=== PATIENT | female | born 1945 | race Caucasian/White ===

== ENCOUNTER 2016-04-25 08:12 | Inpatient (IN) | payer MEDICARE ==
--- NOTE | 2016-04-21 17:51 | PCM.HPSURG ---
Subjective Date of Service: Apr 03, 2016 Referring Provider: Admitting Physician: Primary Care Physician: Marcos Petersen MD Attending Physician: Kristopher De La Rosa MD Chief Complaint SEE BELOW History of Present Illness Patient: Carmela Mccormick Date of : 1945 Visit Type: Pre Op Visit Date: 04/03/2016 08:30 AM This 70 year old female presents for Pre Op C4-5 ACDF, Allograft and & Plating. History of Present Illness: 1. Pre Op C4-5 ACDF, Allograft, & Plating Carmela Mccormick is a 70 year old female referred by Primary Care Provider (PCP) Dr. Marcos Petersen M.D. who presents today's date 04/03/2016 for a preoperative type of appointment concerning the decision for surgery involving C4-5 anterior cervical discectomy and fusion, with allograft bone, & anterior cervical plating from C4-5 secondary to a diagnosis of cervical spondylosis with myelopathy with related complaints of severe, intractable, and debilitating headaches, neck spasm to the lower back, & pain radiating to the bilateral shoulders, upper & lower extremities with numbness, paresthesias, dysesthesias, cramping, difficulty with ambulation, balance, coordination, fine motor manipulation & unsteadiness of gate. This patient was last evaluated by Dr. Kristopher De La Rosa M.D. on 04/03/2016 documenting that she was last seen in consultation by NAYELY Blankenship 01/05/2016 this patient presented with cervical spondylosis and symptoms of myelopathy. Over the past year she reports local neck pain with flareups of more intense pain and headaches and muscle tightness involving the neck with pain between the shoulder blades. Over the past year she's developed constant diffuse aches described as a heavy feeling in her arms and legs. She also has episodes of paresthesias in her hands that wake her from sleep. She reports occasional shooting pains into the left arm that have been an issue for the past year. She has noticed a loss of coordination in her hands with deterioration of her handwriting over the past 6 months. What is most disturbing for this patient is impairment of balance and frequent falls over the past year. She also reports episodes of cramping in her calves and feet that wake her from sleep over the past 2-3 months she has noted increased low back pain with muscle spasms over the past year. An MRI scan of the cervical spine showed a progression of spondylosis at the C4-5 level with flattening of the anterior cord. She is scheduled for surgery C4-5 ACDF with allograft bone and anterior plating and is being seen today for informed consent. The patient and Dr. De La Rosa discussed all the risks and benefits associated with the procedure as well as reasonable expectations with regards to surgical outcomes & the patient elected to proceed with surgery as planned. The patient suffered a fall with concussion & memory loss on 03/05/2016 she was evaluated at [facility] emergency department and stayed overnight for observation with negative CT scan of the brain and no significant change in her myelopathic presentation and/or movement disorder. She was also recently evaluated by Neurologist Dr. Valentin Pat M.D. 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 She underwent a [facility] DatScan SPECT/CT with radiological reading impression listing no scintigraphic evidence of nigrostriatal denervation in a manner suggestive of Parkinson's Disease or related disorders. The patient is scheduled to follow-up with Dr. Pat for medical clearance before her scheduled cervical spinal surgery. The patient denies any complete or acute loss of control of bowel or bladder function, saddle paresthesia or anesthesia. The patient has a pertinent positive past medical, surgical and social history for bilateral KAM, hysterectomy, recent vision changes, increased bladder spasticity and/or stress incontinence, & frequent headaches. The patient admits to 2 glasses of wine per night & her is an alcoholic who will be unable to support her postoperatively therefore she will rely on her daughter & son-in-law. The patient's related complaints have been a serious detriment to their happiness and activities of daily living. Having failed conservative treatment the patient presents today for their decision for surgery appointment involving C4-5 anterior cervical discectomy and fusion, with allograft bone, & anterior cervical plating from C4-5 for treatment of cervical spondylosis with myelopathy ; related to severe, intractable, and debilitating headaches, neck spasm to the lower back, & pain radiating to the bilateral shoulders, upper & lower extremities with numbness, paresthesias, dysesthesias, cramping, difficulty with ambulation, balance, coordination, fine motor manipulation & unsteadiness of gate. The procedure is scheduled to be performed by Dr. Kristopher De La Rosa M.D. on 04/25/2016. PHYSICAL EXAM: This is a well-developed, well nourished, female who is alert, cooperative, and appears to be in no acute distress with language and speech that is intact and fluent. There is no evidence of recent or remote memory impairment. The patient's knowledge is appropriate for age and level of education with a pleasant affect & euthymic mood. The patient ambulates with significant difficulty using a wide based shuffling gait and a cane for assistance. Exam of the head is normocephalic. PERRL, EOMI, without facial droop, hearing grossly intact, nostrils patent, oral cavity and pharynx normal. Exam of the neck supple, without lymphadenopathy or thyromegaly. Exam or the heart reveals regular rate and rhythm without audible murmurs The lungs are clear to auscultation bilaterally The abdomen is non- tender and non-distended Exam of the cervical spine reveals that the skin is grossly intact and without gross deformity, or asymmetry of spinal muscles, full range of motion causing mild pain with positive inferior bilateral paraspinal tenderness to palpation. Negative Spurling, positive L'hermitte's and negative distraction. Tone: increased in the upper and lower extremities. Exam of the right upper extremity reveals that the skin is grossly intact with no significant deformity or joint abnormality. Strength in the deltoids, biceps , triceps, wrist extensors, wrist flexors, and intrinsic is rated 5/5. There is normal gross sensation to pinprick & light touch. Radial pulse is intact. Tinel's & Phalen's are negative with no tenderness over cubital tunnel. DTRs: Biceps 2+, triceps 2 +, brachioradialis 2 +. Exam of the left upper extremity reveals that the skin is grossly intact with no significant deformity or joint abnormality. Strength in the deltoids, biceps , triceps, wrist extensors, wrist flexors, and intrinsic is rated 5/5. There is normal gross sensation to pinprick & light touch. Radial pulse is intact. Tinel's & Phalen's are negative with no tenderness over cubital tunnel. DTRs: Biceps 1 +, triceps 2 +, brachioradialis 2 +. Exam of the thoracic and lumbar spine reveals the skin is grossly intact without gross deformity, or asymmetry of spinal muscles, normal range of motion causing minimal pain with mild bilateral inferior lumbar paraspinal tenderness to palpation without muscular fasciculations appreciated. Exam of the right lower extremity reveals KAM scar healed with no significant deformity or joint abnormality. Strength in the hip flexors, quadriceps, gastrocnemius, tibialis anterior, and extensor hallucis longus is rated 5/5. There is normal gross sensation to pinprick & light touch. There is no edema. Peripheral pulses are intact. No obvious varicosities. Negative straight leg raise and negative Fabers/Patricks. DTRs: Patellar 3 +, & achillies 3 +. Exam of the left lower extremity reveals AKM scar healed with no significant deformity or joint abnormality. Strength in the hip flexors, quadriceps, gastrocnemius, tibialis anterior, and extensor hallucis longus is rated 5/5. There is normal gross sensation to pinprick & light touch. There is no edema. Peripheral pulses are intact. No obvious varicosities. Negative straight leg raise and negative Fabers/Patricks. DTRs: Patellar 3 +, & achillies 3 +. CNII-XII, rjebln-ae-[id number], xnir-[id number] & rapid alternating movements in the upper & lower extremities is grossly intact. There is negative Romberg's, & bilateral renea's, with positive clonus 2 beats & normal bilateral babinski' s. Medical/Surgical/Interim History Reviewed, no change. Last detailed document date:04/03/2016. Family History: Reviewed, no changes. Last detailed document date:04/03/2016. Social History (Reviewed, updated) 04/03/2016 Tobacco use reviewed. Preferred language is Fijian. The patient does not need an vp research. Smoking status: Former smoker. Smoking Status Use Status Type Smoking Status Years Used Total Pack Years yes Cigarette Former smoker 30.00 7.50 Cessation Type Date Quit Longest Tobacco Free Cessation Method Cigarette 04/23/1985 CAFFEINE The patient uses caffeine: coffee and tea. - 2 cups a day. Allergies: Ingredient Reaction Medication Name Comment NO KNOWN ALLERGIES Reviewed, no changes. Review of Systems System Neg/Pos Details MS Positive Back pain, Myalgia, Neck stiffness. Neuro Negative Dizziness, headache and seizures. Constitutional Negative Chills and fever. ENMT Negative Hearing loss. Integumentary Negative Mrsa and rash. Psych Negative Anxiety and depression. Negative Dysuria, urge incontinence and urinary incontinence. MS Negative Bone/joint symptoms and muscle weakness. Eyes Negative Double vision and vision loss. GI Negative Abdominal pain, constipation, diarrhea, nausea and vomiting. Endocrine Negative Weight gain and weight loss. Cardio Negative Chest pain, irregular heartbeat/palpitations, leg swelling and pacemaker. Corby/Lymph Negative Blood clots. Respiratory Negative Dyspnea, apnea and wheezing. Vital Signs Height Time ft in cm Last Measured Height Position % 8:16 AM 5.0 2.00 157.48 01/05/2016 Weight/BSA/BMI Time lb oz kg Context % BMI kg/m2 BSA m2 8:16 AM 143.80 65.227 26.30 1.69 Blood Pressure Time BP mm/Hg Position Side Site Method Cuff Size 8:16 AM 147/93 sitting left wrist automatic adult Temperature/Pulse/Respiration Time Temp F Temp C Temp Site Pulse/min Pattern Resp/ min 8:16 AM 97.9 36.6 65 regular Pain Scale Time Pain Score Method 8:16 AM 6/10 Numeric Pain Intensity Scale Measured By Time Measured by 8:16 AM Anastacio Rosenberg MA Screening Summary:o Pain is described as 6/10. Evaluated pain score with Numeric Pain Intensity Scale. The following were reviewed: tobacco use, alcohol use and caffeine use Physical Exam Exam Findings Details Comments SEE ABOVE Assessment/Plan # Detail Type Description 1. Assessment Cervical spondylosis with myelopathy (M47.12). 2. Assessment Preoperative examination (Z01.818). Patient Plan We including your Attending Surgeon have discussed the risks and benefits associated your scheduled procedure which you have verbally acknowledged understanding including but not limited to the possibility of an outcome that we are unable to predict or was not mentioned. 1. You are scheduled for a C4-5 anterior cervical discectomy and fusion, with allograft bone, & anterior cervical plating from C4-[address] Kristopher De La Rosa M.D. at [facility] on 04/25/2016. 2. Check in time is 8:30 AM. Also please ignore instructions below if told otherwise by your preadmission nurse or if you do not take the medications listed below. 3. Nothing to eat after midnight the night before surgery. You may take all of your "approved" medications with small sips of water. Remember to take your a.m. hypertension medication if it is a beta lázaro and ends in "olol. Otherwise ask your doctor if you need to hold your a.m. hypertension medication. 4. No aspirin, ibuprofen, Naprosyn, or other NSAIDs starting 7 days prior to surgery. 5. Please stop Warfarin/Coumadin or other blood thinners such as Plavix, Aggrenox, or Xarelto 7 days prior to your surgical procedure and follow specific instructions from your prescribing provider. 6. Please stop Lovenox bridging in the morning one day prior to procedure. 7. Please stop Suboxone/Buprenorphine at least 4 days prior to procedure. 8. Go to the hospital today to get her preoperative testing done. Take the order form to the surgery desk on the second floor of the [facility] (main entrance next to the emergency entrance). I will notify you if there is any test results that require further workup prior to surgery. 9. Follow the instructions you were given today, use the cleansing cloths the night before as well as the morning of her surgery. 10. If you are prescribed inhalers, CPAP or BiPAP machines you use at home bring along with you to the hospital. 11. ONLY If you take medications for Diabetes: If you have an insulin pump continue lowest (typically night-time) basal rate into the a.m. If you do not have a pump check h your a.m. blood sugar and hold insulin if BS less than 100. If you are taking long-acting, intermediate acting (NPH) or 70/30 preparation : Take half on day of procedure. If you are taking ultra long-acting insulin such as glargine, Lantus either at night or in the a.m. continue as scheduled ( including day of surgery). If you take short acting regular insulin (insulin not delivered via pump) discontinue on day of procedure. 12. Please call if you have any questions before your surgery: [phone]. Today's instructions/counseling include(s) Pre-operative instructions given to the patient and or legal food service sales representatives(s) orally and in writing. 13. Our office will contact you if there are any test results that require further workup prior to surgery. Provider Plan The patient's history and examination as well as radiological findings were reviewed with Dr. Kristopher De La Rosa M.D. and conveyed the patient in detail. The findings are consistent with cervical spondylosis with myelopathy and are most likely the cause of the patient's severe, intractable, and debilitating headaches, neck spasm to the lower back, & pain radiating to the bilateral shoulders, upper & lower extremities with numbness, paresthesias, dysesthesias, cramping, difficulty with ambulation, balance, coordination, fine motor manipulation & unsteadiness of gate. The patient has failed extensive conservative treatment for this condition. The treatment options were discussed with the patient. The options include attempt to live with the condition, reattempt conservative treatment, try a pain management intervention / injection or consider a surgical intervention. We are not extremely optimistic that further conservative treatment, pain management intervention and/or injection will adequately resolve the patient's symptoms of severe, intractable, and debilitating headaches, neck spasm to the lower back, & pain radiating to the bilateral shoulders, upper & lower extremities with numbness, paresthesias, dysesthesias, cramping, difficulty with ambulation, balance, coordination, fine motor manipulation & unsteadiness of gate. Therefore we recommend C4-5 anterior cervical discectomy and fusion, with allograft bone, & anterior cervical plating from C4-5. The patient was provided/offered educational materials pertaining to their diagnosis and the above discussed procedure. We discussed the risks and benefits associated with this surgery. A spine model was used to explain the nature of this type of surgery. The risk of the required anesthesia was also mentioned including but not limited to organ failure such as heart attack, pneumonia and stroke even . The risk of this type of surgery was also mentioned. Including but not limited to an unsuccessful outcome, residual symptoms, odynophagia, dysphasia or sore throat, referred or radiating posterior spinal myofascial inflammatory pain or spasm, post operative instability, instrumentation failure, sensory changes, blood loss, blood clots, wound infection, spinal cord or nerve damage, CSF or lymph leak, damage to neighboring structures such as the recurrent laryngeal nerve, perforation of the esophagus or trachea, pseudoarthrosis, adjacent level disease, La Nena's Syndrome, vision loss, voice change, resulting in temporary or permanent dysfunction, even disability, paralysis, and . The recovery of this type of surgery was also mentioned. The chances of improvement of local neck pain is 50%. This includes but is not limited to reasonable expectations for the treatment of myelopathy involving the surgical decompression of the cervical spinal cord; which will stop the progression of the patient's condition but cannot guarantee improvements in any associated physical complaints. The patient verbalized understanding all the risks and benefits, knowing that it is impossible to predict or guarantee every surgical outcome; and would like to proceed with the above discussed procedure anyways. Surgery is scheduled for 04/25/2016 The standard [facility] preoperative screening tests, medicine restrictions, and logistical protocols apply. Any preoperative testing is within normal limits to undergo the above discussed procedure unless otherwise noted in the medical record. Medications (added, continued or stopped this visit): Start Date Medication Directions Stop Date 03/06/2016 carbidopa 25 mg-levodopa 100 mg tablet take 1 tablet by oral route 3 times every day Multi-Shy 50 and Over tablet 04/22/2016 [place] 10 mg-325 mg tablet take 0.5-2 tablet(s) by oral route every 4 - 6 hours as needed for pain 04/22/2016 Valium 5 mg tablet take 1 - 2 Tablet by oral route every 8 hours as needed for spasm vitamin B complex tablet Vitamin C With Nilsa Hips 1,000 mg tablet Counseling/Educational Factors: Counseling / educational factors reviewed. Counseling / educational factors reviewed. This is a visit of 60 minutes. 50 minutes were spent counseling. The patient was checked out at 11:40 AM. This document may have been created using voice recognition software or other electronic means and may contain inadvertent hospital chaplain errors. Provider: Abelino OVERTON 04/03/2016 12:06 PM Document generated by: Abelino Lawrence 04/03/2016 12:06 PM CC Providers: Marcos Petersen [address] [place] [address]- Marcos Clarke[address] [place] [address] [address] [place] [address] w bud rae i n i c s . 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 PAT/SRC NEURO) Denies:: Dementia (02/2016 ED VISIT @ [facility] FOR FALL & CONCUSSION/MEMORY LOSS( MRI NEG)) Gastrointestinal History HX of GI Problems?: No Genitourinary History Hx of Gu Problems?: Yes Female/Male History Reproductive History Female: Denies: Currently ? Skin History Skin History: Denies:: History Skin Disorders? Pressure Ulcers Musculoskeletal History Hx Musculoskeletal Problems?: Yes Musculoskeletal History: Positive for:: Degenerative Joint Joint Replacement (S/P BILAT KAM'S) Osteoarthritis Denies:: Back Injury (C/OF NECK PAIN) Psycho Social History Hx of Psycho/Social Problems?: No Other History Hx Any Other Health Problems?: Yes Other History: Positive for:: Hospitalization (FALL/CONCUSSION 02/2016) Denies:: Cancer Endocrine Disease Thyroid Disease Diabetes: No Social History Hx Alcohol Use: YesAlcoholic Drinks Per Day: 2/DAY Abelino Lawrence PA-C Apr 21, 2016 17:51
[2016-04-25] VITALS (14 sets, daily range): BP systolic 148–187; BP diastolic 72–96; PULSE 52–93; RESP 13–21; O2SAT 92–97
[~2016-04-25] VITALS: Ht 157.5 cm; Wt 65.2 kg
[~2016-04-25 08:12] MED LIST: ASCO100089 PO; Bacitracin 50,000 unit Inj IRRIGATION ONE; CARB1TAB14 PO; CEFAZOLIN IV ONE; CHOL100045 PO; DEXTROSE IV ONE; DIAZ5TAB PO; HYDR-3740 PO; Lactated Ringer's 1,000 ML IV ONE; MULTIVIT PO; Thrombin Powder 5,000 Unit TOPICAL ONE; VIT1TABL83 PO; [UNRECOGNIZED DRUG - OTHER] IV ONE; [UNRECOGNIZED DRUG - OTHER] PO
--- NOTE | 2016-04-25 10:31 | PCM.HPANE ---
Patient Data Surgeon Admitting Provider: Attending Provider:Kristopher De La Rosa MD Primary Care Physician:Marcos Petersen MD Other Provider:Suraj Hartman Anesthesia Reason for Visit Cervical Spondylosis With Myelopathy Ht/WT & BMI Height (Feet): 5 Height (Inches): 2.00 Weight (Kilograms): 65.2 Body Mass Index 26.00 Allergies Coded Allergies: No Known Allergies (Unverified , 04/19/16) Past Anesthesia History Anesthesia History: Denies:: Anesthesia Reactions, Malignant Hyperthermia Diabetes History Hx Diabetes?: No MRSA MRSA: No Medications Hypertension Medication: No Home Meds Incl Beta Hannah: No Reported Medications Cholecalciferol (Vitamin D3) (Vitamin D)1,000 Unit Capsule2,000 Unit PO DAILY # 1 BOTTLE Ref 0 04/19/16 Ascorbic Acid (Vitamin C)1,000 Mg Tab.chew1,000 Mg PO DAILY Ref 0 04/19/16 Vit B Comp/C/FA/Iron/Vit E (Vitamin B Complex Tablet)1 Each Tablet1 Each PO DAILY 04/19/16 Diazepam (Valium)5 Mg Tablet5-10 Mg PO TID PRN PRN 30 Days Ref 0 04/19/16 Hydrocodone-Acetaminophen 10-325 mg 1 Each Tablet0.5-2 Tablet PO Q4-6H PRN For Pain Ref 0 04/19/16 [multivit 50 & older] No Conflict Check1 Tab PO DAILY 04/19/16 Carbidopa/Levodopa 25-100 mg 1 Each Tablet1 Tablet PO TID takes 1 tab @ 0800, 1.5 tabs @ 1500, 1 tab @ 2200 04/19/16 History History of ENT Problems?: No Hx of Heart Problems?: No Cardiovascular History: Denies:: Heart Murmur Valvular Heart Disease Hx of Respiratory Problem?: No Respiratory History: Denies:: Use of C-PAP Machine Hx Neurologic Problems?: Yes Neurological History: Positive for:: 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 PAT/SRC NEURO) Denies:: Dementia (02/2016 ED VISIT @ [facility] FOR FALL & CONCUSSION/MEMORY LOSS( MRI NEG)) Hx of GI Problems?: No Hx of Problems?: Yes Female Hx: Denies:: Currently Skin History: Denies:: History Skin Disorders? 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) Osteoarthritis Denies:: Back Injury (C/OF NECK PAIN) Hx of Psycho/Social Problems?: No Hx Surgeries?: Yes (BILAT KAM'S,HYST) Hx Any Other Health Problems?: Yes Other History: Positive for:: Hospitalization (FALL/CONCUSSION 02/2016) Denies:: Cancer Endocrine Disease Thyroid Disease History Blood Transfusions: Denies:: Blood Transfusions Hx Diabetes: No Hx Alcohol Use: YesAlcoholic Drinks Per Day: 2/DAYHave You Smoked inLast 12 mo : NoApprox How Many Cigarettes/day: 30YR HX Stop/Bang S-Snoring: Do You Snore Loudly: No T-Tired: feel tired, fatigued: Yes O-Obsered: Observed not breath: No P-Blood Pressure: treated: No B- Body Mass Index > 35 kg/m2: No A- Age over 50: Yes N- Neck Large Circumference: No G- Gender Male: No ANNY Total Score: 2 ANNY Risk Assessment: Low Risk, <3 Yes Risk Assessment Category Category 1A: Patient has history of documented sleep apnea, and HAS NOT received any narcotic, sedative or anesthesia administration during this stay. Category 1B: Patient has history of documented sleep apnea, and HAS received any narcotic , sedative or anesthesia administration during this stay Category 2: Patient has SUSPECTED Obstructive Sleep Apnea, and HAS received any narcotic , sedative or anesthesia administration during this stay. Category 3: Patient has SUSPECTED Obstructive Sleep Apnea and HAS NOT received narcotic, sedative or anesthesia administration during this stay. Category 4: Outpatient in Procedural Areas with known sleep apnea or who screen positive for High Risk via the STOP/BANG questionnaire. Exam Exam Vital Signs Vital Signs Date Time Temp Pulse Resp B/P Pulse Ox O2 Delivery O2 Flow Rate FiO2 04/25/16 08:51 36.5 65 16 157/85 96 Room Air General Appearance: Alert, Oriented X3, Cooperative, No Acute Distress HEENT/AIRWAY: MP 2 Lungs: Clear to Auscultation, Normal Air Movement Heart: Exam Unremarkable, Regular Rate/Rhythm, No Murmurs/Rubs/Gallops Meds/Labs/Diagnostics Admission Meds Current Medications Lactated Ringer's (Lr) 1,000 ml @ 120 mls/hr Q8H20M ONCE IV Last administered on 04/25/16t 08:17; Start 04/25/16 at 05:00; Stop 04/25/16 at 13:19 Plan Impression Patient chart reviewed, patient interviewed and anesthestic plan with risks, benefits, and alternatives discussed, and informed consent obtained. NPO Status: 04/24 at 1999 ASA Physical Status: ASA3 Severe Disease Anesthetic Plan: GA Bene/Risks/Altern/Consents: Yes HP Complete Prior to Induction: Yes Efrain Johnston MD Apr 25, 2016 09:05
[2016-04-25] MEDS ORDERED: Lactated Ringer's 500 ML IV PRN (10:32)
[2016-04-25] MEDS ORDERED: Lactated Ringer's 1,000 ML IV SCH (10:32)
[2016-04-25] MEDS ORDERED: Phenylephrine 10,000 mCg/mL Inj IVPUSH PRN (10:35)
[2016-04-25] MEDS ORDERED: MetoCLOpramide 5 mg/mL 2 mL Inj IVPUSH PRN ×2 (10:35→13:35)
[2016-04-25] MEDS ORDERED: HYDROmorphone 1 mg/mL Inj IVPUSH PRN ×2 (10:35→13:35)
[2016-04-25] MEDS ORDERED: Labetalol 5 mg/mL 4 mL Inj IV PRN (10:35)
[2016-04-25] MEDS ORDERED: EPHEDrine Sulfate 50 mg/mL Inj IVPUSH PRN (10:35)
[2016-04-25] MEDS ORDERED: Ondansetron 2 mg/mL 2 mL Inj IVPUSH PRN ×3 (10:35→13:35)
[2016-04-25] MEDS ORDERED: Atropine 0.4 mg/mL Inj IVPUSH PRN (10:35)
[2016-04-25] MEDS ORDERED: hydrALAZINE 20 mg/mL Inj IVPUSH PRN (10:35)
[2016-04-25] MEDS ORDERED: fentaNYL-PF 50 mCg/mL 2 mL Inj IVPUSH PRN (10:35)
[2016-04-25] MEDS ORDERED: Bupivacaine-MPF 0.5% 30 mL Inj INFILTRATE ONE (10:38)
--- NOTE | 2016-04-25 11:32 | DRSVH ---
PROCEDURE: X-RAY CERVICAL SPINE, 1 VIEW INDICATIONS: CERVICAL SPONDYLOSIS WITH MYELOPATHY TECHNIQUE: Single lateral view of the cervical spine acquired. COMPARISON: None. FINDINGS: Bones: No fractures or dislocations to the C7 level. No suspicious bony lesions. Localizer devices are present anteriorly at C3-C4 and C4-C5. Mild grade 1 anterolisthesis at C4-C5. Mild grade 1 retro listhesis of C5 on C6. Soft tissues: No prevertebral soft tissue swelling. IMPRESSION: C-spine localization as above. Dictated by: Juancarlos Medley M.D. on 04/25/2016 at 11:30 Approved by: Juancarlos Medley M.D. on 04/25/2016 at 11:30
--- NOTE | 2016-04-25 13:16 | PCM.ANEP1 ---
Post Anesthesia Phase 1 PACU Phase 1 Assessment Date of Service: Apr 03, 2016 Vital Signs Vital Signs Date Time Temp Pulse Resp B/P Pulse Ox O2 Delivery O2 Flow Rate FiO2 04/25/16 08:51 36.5 65 16 157/85 96 Room Air Level of Alertness: Awake, talking BYRD's with Equal Strength: Yes Pain: No Nausea or Vomiting: No Oxygen Delivery: Simple Mask Lungs: Clear to Auscultation, Normal Air Movement Summary Hypertensive in PACU without pain, titrate labetalol. Efrain Johnston MD Apr 25, 2016 13:16
--- NOTE | 2016-04-25 13:18 | PCM.ANEP2 ---
Post Anesthesia Evaluation ASA/CMS Post Anesthesia VS in Patient's Normal Range?: Yes Resp Stable; Airway Patent?: Yes CV Function & Hydration Stable: Yes Mental Status Recovered?: Yes Pain control Satisfactory?: Yes N/V Control Satisfactory?: Yes Efrain Johnston MD Apr 25, 2016 13:18
[2016-04-25] MEDS ORDERED: HYDROcodone-APAP 10-325 mg PO PRN (13:25)
[2016-04-25] MEDS ORDERED: hydrOXYzine Pamoate 25 mg Capsule PO PRN (13:35)
[2016-04-25] MEDS ORDERED: Dexamethasone 4 mg/mL Inj IVPUSH SCH (13:35)
[2016-04-25] MEDS ORDERED: Sodium Biphos-Phos 133 mL Enema RECTAL PRN (13:35)
[2016-04-25] MEDS ORDERED: Polyethylene Glycol (PEG) 17 Gm Powder PO PRN (13:35)
[2016-04-25] MEDS ORDERED: Benzocaine (Hurricaine) 20% Unit-Dose Spray MUC_MEMBRM PRN (13:35)
[2016-04-25] MEDS ORDERED: Senna-Docusate 8.6-50 mg Tablet PO PRN (13:35)
[2016-04-25] MEDS ORDERED: Benzocaine-Menthol Lozenge 2/Pkg PO PRN (13:35)
[2016-04-25] MEDS ORDERED: Magnesium Hydroxide 10 mL Oral Concentration PO PRN (13:35)
--- NOTE | 2016-04-25 13:40 | DRSVH ---
PROCEDURE: X-RAY CERVICAL SPINE, 1 VIEW INDICATIONS: INTRAOPERATIVE IMAGE TECHNIQUE: Single lateral view of the cervical spine acquired. COMPARISON: [facility], CR, XR CERVICAL SPINE 1VW, 04/25/2016, 11:05. FINDINGS: Bones: No fractures or dislocations to the C7 level. Anterior fusion of C4-C5 has been performed. N o suspicious bony lesions. Soft tissues: No prevertebral soft tissue swelling. IMPRESSION: C4-C5 fusion. Dictated by: Juancarlos Medley M.D. on 04/25/2016 at 13:38 Approved by: Juancarlos Medley M.D. on 04/25/2016 at 13:38
[2016-04-25] MEDS ORDERED: fentaNYL-PF 50 mCg/mL 2 mL Inj IVPUSH ONE (14:04)
[2016-04-25] MEDS ORDERED: Rocuronium 10 mg/mL 5 mL Inj ONE (14:43)
[2016-04-25] MEDS ORDERED: Dexamethasone 4 mg/mL Inj ONE (14:43)
[2016-04-25] MEDS ORDERED: fentaNYL-PF 50 mCg/mL 2 mL Inj ONE (14:43)
[2016-04-25] MEDS ORDERED: Propofol 10,000 mCg/mL 20 mL Inj ONE (14:43)
[2016-04-25] MEDS ORDERED: Glycopyrrolate 0.2 mg/mL 5 mL Inj ONE (14:43)
[2016-04-25] MEDS ORDERED: Neostigmine 1 mg/mL 5 mL Inj ONE (14:43)
[2016-04-25] MEDS ORDERED: Remifentanil 1 mg/3 mL Inj ONE (14:43)
[2016-04-25] MEDS ORDERED: Ondansetron 2 mg/mL 2 mL Inj ONE (14:43)
[2016-04-25] MEDS ORDERED: Ketamine 10 mg/mL 20 mL Inj ONE (14:43)
[2016-04-25] MEDS: Lactated Ringer's 1,000 ML IV SCH (15:06)
--- NOTE | 2016-04-25 16:01 | NUR ---
Postop: Pt to floor at approx 1500. Pt alert, but sedate. Iv patent and running. Scd's on. Soft neck collar in place with Valeriy anterior with serosanguinous drainage. Started on Ice chips. Vital signs wnl. Care transferred to Rosa Leone at 1600.
[2016-04-25] MEDS: HYDROcodone-APAP 10-325 mg PO PRN ×2 (18:40→22:58)
[2016-04-25] MEDS: CeFAZolin Inj 2 GM in IV Premix 1 EACH IV SCH (20:28)
[2016-04-25] MEDS: Senna-Docusate 8.6-50 mg Tablet PO SCH (20:38)
--- NOTE | 2016-04-25 20:59 | OP ---
[address] [address] OPERATIVE REPORT PATIENT: MIRANDA LOGAN : 1945 MR#: [id number] ADMIT: 04/25/2016 JOB ID: [id number] DATE OF SURGERY: 04/25/2016 PREOPERATIVE DIAGNOSIS(ES): Cervical spondylosis and myelopathy. POSTOPERATIVE DIAGNOSIS(ES): Cervical spondylosis and myelopathy. PROCEDURE: C4-5 anterior cervical diskectomy and fusion with allograft bone and C4-5 anterior plating. SURGEON: Kristopher De La Rosa MD GAS LEAK TESTER: Papo Blankenship ANESTHESIA: General with Dr. Efrain Johnston. ESTIMATED BLOOD LOSS: 50 cc. DRAINS: One DM. COMPLICATIONS: None. INDICATIONS: This patient presented with symptoms of cervical myelopathy. An MRI scan of the cervical spine showed severe spondylosis with cord compression at the C4-5 level, with a moderate degree of bilateral neural foraminal narrowing. DESCRIPTION OF PROCEDURE: This patient was taken to the operating room on April 25, 2016 and placed under general anesthesia, placed supine with her head supported on a donut on the operating table. She was prepped and draped sterile. The right side of the neck was infiltrated with 0.5% plain Marcaine. An incision was made sharply from the midline to the sternocleidomastoid at the level of C5. The incision was carried down through the skin and subcutaneous tissues and hemostasis was achieved with the bipolar electrocautery. A Weitlaner retractor was placed. Blunt dissection was then used to create a plane just medial to the sternocleidomastoid. The carotid was palpated and mobilized laterally. The esophagus and trachea were mobilized medially with an appendectomy retractor. Then, spinal needles were then placed in the disk space at C3-4 and C4-5. Location of these markers was confirmed with an intraoperative lateral C-spine x-ray that was read by the radiologist. The bent spinal needles were removed and the monopolar was used to charity the C4-5 level. Deep retractors were placed with the blades beneath the longus coli musculature at the C4-5 level and distracted open. The Lindsay pins were replaced at C4-5 and distracted open. The microscope was then brought into position, sighting down the C4-5 disk level. The annulus was incised with the monopolar. Then, the disk material at C4-5 was removed piecemeal with curette and pituitary rongeur. The high-speed bur was used to take down the anterior and posterior osteophytes at C4-5 and to widen the disk space. The posterior longitudinal ligament was resected at C4-5. The patient had bilateral foraminotomies to decompress the C5 roots bilaterally. Following this decompression, the disk space was prepared for the fusion using the rasp set, rasping to 8 mm. The disk space was then irrigated with antibiotic solution and allograft bone was selected to fit the C4-5 level. Vertigraph donor bone was selected, measuring 8 mm and tapering to 6 mm. The disk space was irrigated with antibiotic solution and then the allograft bone was placed at the C4-5 level and distraction was released. The bone graft was held firmly in position. A plate was then selected to span the C4-5 level. This is a Aguilar plate, a product of [employer]. The plate is a dynamic titanium plate measuring 16 mm. The plate was secured to the vertebral body of C4 and C5 with four fixed angle 12 mm self-drilling screws. An intraoperative lateral C-spine film was obtained confirming good placement of the bone graft and plating hardware at C4-5. The screws were all locked into position and the spacing bar was removed from the Aguilar plate. The wound was then irrigated with antibiotic solution and hemostasis was achieved with the bipolar electrocautery. A DM drain was placed at the base of the wound and brought out through a separate stab wound, and hooked up to bulb suction. The platysma was approximated with interrupted sutures of 3-0 Vicryl and the skin was closed with 4-0 Vicryl using a subcuticular stitch. Steri-Strips were applied to the skin which was dressed with Telfa, gauze, and tape.
[2016-04-26] MEDS: Dexamethasone 4 mg/mL Inj IVPUSH SCH ×3 (00:13→12:00)
[2016-04-26 00:41] VITALS: BP 133/70; PULSE 63; RESP 18; O2SAT 94
--- NOTE | 2016-04-26 02:06 | NUR ---
Pain Patient states pain at 4/10. [place] given 1 tab, Patient's pain came down to a 1. Patient up to bathroom with FWW, stand by assist.
[2016-04-26] MEDS: Lactated Ringer's 1,000 ML IV SCH ×2 (02:11→11:48)
[2016-04-26] MEDS: CeFAZolin Inj 2 GM in IV Premix 1 EACH IV SCH (03:28)
[2016-04-26] MEDS: HYDROcodone-APAP 10-325 mg PO PRN ×3 (05:14→13:05)
[2016-04-26 05:56] VITALS: BP 133/73; PULSE 70; RESP 17; O2SAT 95
[2016-04-26] MEDS: Senna-Docusate 8.6-50 mg Tablet PO SCH (08:14)
[2016-04-26] MEDS ORDERED: MULTIVIT PO SCH (08:30)
[2016-04-26] MEDS ORDERED: Ascorbic Acid 500 mg Tablet PO SCH (08:30)
[2016-04-26] MEDS ORDERED: [UNRECOGNIZED DRUG - OTHER] PO SCH (08:30)
[2016-04-26 08:55] VITALS: BP 153/77; PULSE 65; RESP 17; O2SAT 94
--- NOTE | 2016-04-26 09:19 | PCM.DISURG ---
Surgical Discharge Instruction Date of Service Apr 26, 2016 Dates of Hospitalization Date of Hospital Admission Apr 25, 2016 at 14:42 Providers Admitting Physician: Kristopher De La Rosa MD Primary Care Physician: Marcos Petersen MD Attending Physician: Kristopher De La Rosa MD Discharge Diagnosis Discharge Diagnosis Status post C4-5 anterior cervical discectomy and fusion with allograft bone, & anterior cervical plating from C4-5 Post Operative diagnosis Status post C4-5 anterior cervical discectomy and fusion with allograft bone, & anterior cervical plating from C4-5 Additional Instructions Discharge Instructions Anterior Cervical Discectomy and Fusion What is my recovery like? The hospital stay is usually overnight. After the surgery, you might have a sore throat. This is very common due to the retraction (moving) of the esophagus and trachea. The sore throat usually resolves in 1-2 weeks. Drinking lots of fluids will help improve the symptoms. The cervical collar should be worn at night and for comfort only during the day. On your postoperative follow- up appointments, your Doctor will perform X-rays to see how well everything is healing. What are my restrictions? You should not lift anything heavier than five pounds. Avoid excessive movements of your neck until instructed specifically by your Doctor. Can I Shower? You may shower when you go home. You must remove the outside dressing on the 7th day after surgery, or change dressing as needed if soiled or saturated ( replacing new sterile gauze & water proof dressing) otherwise leave alone. The small pieces of tape (steri-strips) directly on top of the incision may get wet. The steri-strips will fall off on their own. Can I drive? No, you should not drive until specifically given permission from your Doctor in a follow up appointment. Most Patient's can drive in 2-3 weeks if they are not taking narcotic pain medications or muscle relaxers. You may ride in a car, but should avoid trips longer than two hours in duration. When can I return work / sports? Your Doctor will discuss your return to work with you on your first postoperative follow-up appointment. Most patients may return to work within 2 weeks for sedentary jobs. More physically demanding jobs may require 3-6 months of healing before such work can be considered. When should I call the doctor? You should call your Doctor or go to the Emergency Department if you develop chest pain, shortness of breath, a temperature greater than 101.5 F, severe uncontrolled pain or weakness, loss of bowel or bladder function, choking, swelling, lots or drainage, pus discharge or constipation. Instructions Regarding Comfort & Pain Medication Use: During the recovery period , even with the use of pain medication, you may experience pain at the site of surgery. You may also have the same type of pain you had before surgery. Please use your pain scale as a guide for taking your pain medication. When your pain is greater than 4 out of 10, or when your pain reaches your personal tolerable level of pain, take your pain medication as prescribed. Use your pain medication on an 'as needed' basis. This means if your pain level is within your tolerable level of pain you DO NOT need to take the medication. As you get better, you will notice you can increase the time interval between doses and decrease the number of tablets you are taking, gradually taking less and less pain medication. Taking pain medication when it is not necessary (for example when your pain is tolerable or acceptable) can result in dangerous side effects and over- sedation. Signs and symptoms of over-sedation include: drowsiness, excessive sleeping, slow or difficult breathing, slurred speech, impaired thinking, confusion, impaired motor coordination. If you have any of these symptoms stop taking the medication and immediately contact your doctor. IF SYMPTOMS ARE LIFE THREATENING CALL 911. To decrease pain and swelling, frequently apply an ice pack for 20 min intervals with at least one hour off. When to take Acetaminophen for pain? If you don't have liver problems, allergies and/or Tylenol is not in your current pain medication. Take Extra Strength Tylenol 500mg 2 tabs by mouth every 6 hours as needed for pain. DO NOT EXCEED 8 TABS PER DAY. Follow Up Plan Follow Up Plan Please follow-up with physician case assistant and outpatient neurosurgery clinic in 1 week for wound check. Follow-up Provider (F9): Abelino Lawrence PA-C Additional Information Attending Statement All documentation reviewed & orders authorized by Dr. Kristopher De La Rosa M.D. Abelino Lawrence PA-C Apr 26, 2016 09:19
--- NOTE | 2016-04-26 09:32 | PCM.DC.SUR ---
Discharge Summary Date of Service: Apr 26, 2016 Date of Hospital Admission: Apr 25, 2016 at 14:42 Date of Operation(s): 04/25/2016 Date of Discharge: 04/26/2016 Operation C4-5 anterior cervical discectomy and fusion with allograft bone, & anterior cervical plating from C4-5 Brief History and Physical: Patient: Carmela Mccormick Date of : 1945 Visit Type: Pre Op Visit Date: 04/03/2016 08:30 AM This 70 year old female presents for Pre Op C4-5 ACDF, Allograft and & Plating. History of Present Illness: 1. Pre Op C4-5 ACDF, Allograft, & Plating Carmela Mccormick is a 70 year old female referred by Primary Care Provider (PCP) Dr. Marcos Petersen M.D. who presents today's date 04/03/2016 for a preoperative type of appointment concerning the decision for surgery involving C4-5 anterior cervical discectomy and fusion, with allograft bone, & anterior cervical plating from C4-5 secondary to a diagnosis of cervical spondylosis with myelopathy with related complaints of severe, intractable, and debilitating headaches, neck spasm to the lower back, & pain radiating to the bilateral shoulders, upper & lower extremities with numbness, paresthesias, dysesthesias, cramping, difficulty with ambulation, balance, coordination, fine motor manipulation & unsteadiness of gate. This patient was last evaluated by Dr. Kristopher De La Rosa M.D. on 04/03/2016 documenting that she was last seen in consultation by NAYELY Blankenship 01/05/2016 this patient presented with cervical spondylosis and symptoms of myelopathy. Over the past year she reports local neck pain with flareups of more intense pain and headaches and muscle tightness involving the neck with pain between the shoulder blades. Over the past year she's developed constant diffuse aches described as a heavy feeling in her arms and legs. She also has episodes of paresthesias in her hands that wake her from sleep. She reports occasional shooting pains into the left arm that have been an issue for the past year. She has noticed a loss of coordination in her hands with deterioration of her handwriting over the past 6 months. What is most disturbing for this patient is impairment of balance and frequent falls over the past year. She also reports episodes of cramping in her calves and feet that wake her from sleep over the past 2-3 months she has noted increased low back pain with muscle spasms over the past year. An MRI scan of the cervical spine showed a progression of spondylosis at the C4-5 level with flattening of the anterior cord. She is scheduled for surgery C4-5 ACDF with allograft bone and anterior plating and is being seen today for informed consent. The patient and Dr. De La Rosa discussed all the risks and benefits associated with the procedure as well as reasonable expectations with regards to surgical outcomes & the patient elected to proceed with surgery as planned. The patient suffered a fall with concussion & memory loss on 03/05/2016 she was evaluated at [facility] emergency department and stayed overnight for observation with negative CT scan of the brain and no significant change in her myelopathic presentation and/or movement disorder. She was also recently evaluated by Neurologist Dr. Valentin Chandler M.D. 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 She underwent a [facility] DatScan SPECT/CT with radiological reading impression listing no scintigraphic evidence of nigrostriatal denervation in a manner suggestive of Parkinson's Disease or related disorders. The patient is scheduled to follow-up with Dr. Chandler for medical clearance before her scheduled cervical spinal surgery. The patient denies any complete or acute loss of control of bowel or bladder function, saddle paresthesia or anesthesia. The patient has a pertinent positive past medical, surgical and social history for bilateral KAM, hysterectomy, recent vision changes, increased bladder spasticity and/or stress incontinence, & frequent headaches. The patient admits to 2 glasses of wine per night & her is an alcoholic who will be unable to support her postoperatively therefore she will rely on her daughter & son-in-law. The patient's related complaints have been a serious detriment to their happiness and activities of daily living. Having failed conservative treatment the patient presents today for their decision for surgery appointment involving C4-5 anterior cervical discectomy and fusion, with allograft bone, & anterior cervical plating from C4-5 for treatment of cervical spondylosis with myelopathy ; related to severe, intractable, and debilitating headaches, neck spasm to the lower back, & pain radiating to the bilateral shoulders, upper & lower extremities with numbness, paresthesias, dysesthesias, cramping, difficulty with ambulation, balance, coordination, fine motor manipulation & unsteadiness of gate. The procedure is scheduled to be performed by Dr. Kristopher De La Rosa M.D. on 04/25/2016. PHYSICAL EXAM: This is a well-developed, well nourished, female who is alert, cooperative, and appears to be in no acute distress with language and speech that is intact and fluent. There is no evidence of recent or remote memory impairment. The patient's knowledge is appropriate for age and level of education with a pleasant affect & euthymic mood. The patient ambulates with significant difficulty using a wide based shuffling gait and a cane for assistance. Exam of the head is normocephalic. PERRL, EOMI, without facial droop, hearing grossly intact, nostrils patent, oral cavity and pharynx normal. Exam of the neck supple, without lymphadenopathy or thyromegaly. Exam or the heart reveals regular rate and rhythm without audible murmurs The lungs are clear to auscultation bilaterally The abdomen is non- tender and non-distended Exam of the cervical spine reveals that the skin is grossly intact and without gross deformity, or asymmetry of spinal muscles, full range of motion causing mild pain with positive inferior bilateral paraspinal tenderness to palpation. Negative Spurling, positive L'hermitte's and negative distraction. Tone: increased in the upper and lower extremities. Exam of the right upper extremity reveals that the skin is grossly intact with no significant deformity or joint abnormality. Strength in the deltoids, biceps , triceps, wrist extensors, wrist flexors, and intrinsic is rated 5/5. There is normal gross sensation to pinprick & light touch. Radial pulse is intact. Tinel's & Phalen's are negative with no tenderness over cubital tunnel. DTRs: Biceps 2+, triceps 2 +, brachioradialis 2 +. Exam of the left upper extremity reveals that the skin is grossly intact with no significant deformity or joint abnormality. Strength in the deltoids, biceps , triceps, wrist extensors, wrist flexors, and intrinsic is rated 5/5. There is normal gross sensation to pinprick & light touch. Radial pulse is intact. Tinel's & Phalen's are negative with no tenderness over cubital tunnel. DTRs: Biceps 1 +, triceps 2 +, brachioradialis 2 +. Exam of the thoracic and lumbar spine reveals the skin is grossly intact without gross deformity, or asymmetry of spinal muscles, normal range of motion causing minimal pain with mild bilateral inferior lumbar paraspinal tenderness to palpation without muscular fasciculations appreciated. Exam of the right lower extremity reveals KAM scar healed with no significant deformity or joint abnormality. Strength in the hip flexors, quadriceps, gastrocnemius, tibialis anterior, and extensor hallucis longus is rated 5/5. There is normal gross sensation to pinprick & light touch. There is no edema. Peripheral pulses are intact. No obvious varicosities. Negative straight leg raise and negative Fabers/Patricks. DTRs: Patellar 3 +, & achillies 3 +. Exam of the left lower extremity reveals KAM scar healed with no significant deformity or joint abnormality. Strength in the hip flexors, quadriceps, gastrocnemius, tibialis anterior, and extensor hallucis longus is rated 5/5. There is normal gross sensation to pinprick & light touch. There is no edema. Peripheral pulses are intact. No obvious varicosities. Negative straight leg raise and negative Fabers/Patricks. DTRs: Patellar 3 +, & achillies 3 +. CNII-XII, [id number], [id number]-[id number] & rapid alternating movements in the upper & lower extremities is grossly intact. There is negative Romberg's, & bilateral renea's, with positive clonus 2 beats & normal bilateral babinski' s. Medical/Surgical/Interim History Reviewed, no change. Last detailed document date:04/03/2016. Family History: Reviewed, no changes. Last detailed document date:04/03/2016. Social History (Reviewed, updated) 04/03/2016 Tobacco use reviewed. Preferred language is Kinyarwanda. The patient does not need an diplomatic interpreter/translator. Smoking status: Former smoker. Smoking Status Use Status Type Smoking Status Years Used Total Pack Years yes Cigarette Former smoker 30.00 7.50 Cessation Type Date Quit Longest Tobacco Free Cessation Method Cigarette 04/23/1985 CAFFEINE The patient uses caffeine: coffee and tea. - 2 cups a day. Allergies: Ingredient Reaction Medication Name Comment NO KNOWN ALLERGIES Reviewed, no changes. Review of Systems System Neg/Pos Details MS Positive Back pain, Myalgia, Neck stiffness. Neuro Negative Dizziness, headache and seizures. Constitutional Negative Chills and fever. ENMT Negative Hearing loss. Integumentary Negative Mrsa and rash. Psych Negative Anxiety and depression. Negative Dysuria, urge incontinence and urinary incontinence. MS Negative Bone/joint symptoms and muscle weakness. Eyes Negative Double vision and vision loss. GI Negative Abdominal pain, constipation, diarrhea, nausea and vomiting. Endocrine Negative Weight gain and weight loss. Cardio Negative Chest pain, irregular heartbeat/palpitations, leg swelling and pacemaker. Corby/Lymph Negative Blood clots. Respiratory Negative Dyspnea, apnea and wheezing. Vital Signs Height Time ft in cm Last Measured Height Position % 8:16 AM 5.0 2.00 157.48 01/05/2016 Weight/BSA/BMI Time lb oz kg Context % BMI kg/m2 BSA m2 8:16 AM 143.80 65.227 26.30 1.69 Blood Pressure Time BP mm/Hg Position Side Site Method Cuff Size 8:16 AM 147/93 sitting left wrist automatic adult Temperature/Pulse/Respiration Time Temp F Temp C Temp Site Pulse/min Pattern Resp/ min 8:16 AM 97.9 36.6 65 regular Pain Scale Time Pain Score Method 8:16 AM 6/10 Numeric Pain Intensity Scale Measured By Time Measured by 8:16 AM Anastacio Rosenberg MA Screening Summary:o Pain is described as 6/10. Evaluated pain score with Numeric Pain Intensity Scale. The following were reviewed: tobacco use, alcohol use and caffeine use Physical Exam Exam Findings Details Comments SEE ABOVE Assessment/Plan # Detail Type Description 1. Assessment Cervical spondylosis with myelopathy (M47.12). 2. Assessment Preoperative examination (Z01.818). Patient Plan We including your Attending Surgeon have discussed the risks and benefits associated your scheduled procedure which you have verbally acknowledged understanding including but not limited to the possibility of an outcome that we are unable to predict or was not mentioned. 1. You are scheduled for a C4-5 anterior cervical discectomy and fusion, with allograft bone, & anterior cervical plating from C4-[address] Kristopher De La Rosa M.D. at [facility] on 04/25/2016. 2. Check in time is 8:30 AM. Also please ignore instructions below if told otherwise by your preadmission nurse or if you do not take the medications listed below. 3. Nothing to eat after midnight the night before surgery. You may take all of your "approved" medications with small sips of water. Remember to take your a.m. hypertension medication if it is a beta lázaro and ends in "olol. Otherwise ask your doctor if you need to hold your a.m. hypertension medication. 4. No aspirin, ibuprofen, Naprosyn, or other NSAIDs starting 7 days prior to surgery. 5. Please stop Warfarin/Coumadin or other blood thinners such as Plavix, Aggrenox, or Xarelto 7 days prior to your surgical procedure and follow specific instructions from your prescribing provider. 6. Please stop Lovenox bridging in the morning one day prior to procedure. 7. Please stop Suboxone/Buprenorphine at least 4 days prior to procedure. 8. Go to the hospital today to get her preoperative testing done. Take the order form to the surgery desk on the second floor of the [facility], [facility] (main entrance next to the emergency entrance). I will notify you if there is any test results that require further workup prior to surgery. 9. Follow the instructions you were given today, use the cleansing cloths the night before as well as the morning of her surgery. 10. If you are prescribed inhalers, CPAP or BiPAP machines you use at home bring along with you to the hospital. 11. ONLY If you take medications for Diabetes: If you have an insulin pump continue lowest (typically night-time) basal rate into the a.m. If you do not have a pump check h your a.m. blood sugar and hold insulin if BS less than 100. If you are taking long-acting, intermediate acting (NPH) or 70/30 preparation : Take half on day of procedure. If you are taking ultra long-acting insulin such as glargine, Lantus either at night or in the a.m. continue as scheduled ( including day of surgery). If you take short acting regular insulin (insulin not delivered via pump) discontinue on day of procedure. 12. Please call if you have any questions before your surgery: [phone]. Today's instructions/counseling include(s) Pre-operative instructions given to the patient and or legal solar manufacturer's representative(s) orally and in writing. 13. Our office will contact you if there are any test results that require further workup prior to surgery. Provider Plan The patient's history and examination as well as radiological findings were reviewed with Dr. Kristopher De La Rosa M.D. and conveyed the patient in detail. The findings are consistent with cervical spondylosis with myelopathy and are most likely the cause of the patient's severe, intractable, and debilitating headaches, neck spasm to the lower back, & pain radiating to the bilateral shoulders, upper & lower extremities with numbness, paresthesias, dysesthesias, cramping, difficulty with ambulation, balance, coordination, fine motor manipulation & unsteadiness of gate. The patient has failed extensive conservative treatment for this condition. The treatment options were discussed with the patient. The options include attempt to live with the condition, reattempt conservative treatment, try a pain management intervention / injection or consider a surgical intervention. We are not extremely optimistic that further conservative treatment, pain management intervention and/or injection will adequately resolve the patient's symptoms of severe, intractable, and debilitating headaches, neck spasm to the lower back, & pain radiating to the bilateral shoulders, upper & lower extremities with numbness, paresthesias, dysesthesias, cramping, difficulty with ambulation, balance, coordination, fine motor manipulation & unsteadiness of gate. Therefore we recommend C4-5 anterior cervical discectomy and fusion, with allograft bone, & anterior cervical plating from C4-5. The patient was provided/offered educational materials pertaining to their diagnosis and the above discussed procedure. We discussed the risks and benefits associated with this surgery. A spine model was used to explain the nature of this type of surgery. The risk of the required anesthesia was also mentioned including but not limited to organ failure such as heart attack, pneumonia and stroke even . The risk of this type of surgery was also mentioned. Including but not limited to an unsuccessful outcome, residual symptoms, odynophagia, dysphasia or sore throat, referred or radiating posterior spinal myofascial inflammatory pain or spasm, post operative instability, instrumentation failure, sensory changes, blood loss, blood clots, wound infection, spinal cord or nerve damage, CSF or lymph leak, damage to neighboring structures such as the recurrent laryngeal nerve, perforation of the esophagus or trachea, pseudoarthrosis, adjacent level disease, La Nena's Syndrome, vision loss, voice change, resulting in temporary or permanent dysfunction, even disability, paralysis, and . The recovery of this type of surgery was also mentioned. The chances of improvement of local neck pain is 50%. This includes but is not limited to reasonable expectations for the treatment of myelopathy involving the surgical decompression of the cervical spinal cord; which will stop the progression of the patient's condition but cannot guarantee improvements in any associated physical complaints. The patient verbalized understanding all the risks and benefits, knowing that it is impossible to predict or guarantee every surgical outcome; and would like to proceed with the above discussed procedure anyways. Surgery is scheduled for 04/25/2016 [facility] preoperative screening tests, medicine restrictions, and logistical protocols apply. Any preoperative testing is within normal limits to undergo the above discussed procedure unless otherwise noted in the medical record. Medications (added, continued or stopped this visit): Start Date Medication Directions Stop Date 03/06/2016 carbidopa 25 mg-levodopa 100 mg tablet take 1 tablet by oral route 3 times every day Multi-Shy 50 and Over tablet 04/22/2016 [place] 10 mg-325 mg tablet take 0.5-2 tablet(s) by oral route every 4 - 6 hours as needed for pain 04/22/2016 Valium 5 mg tablet take 1 - 2 Tablet by oral route every 8 hours as needed for spasm vitamin B complex tablet Vitamin C With Nilsa Hips 1,000 mg tablet Counseling/Educational Factors: Counseling / educational factors reviewed. Counseling / educational factors reviewed. This is a visit of 60 minutes. 50 minutes were spent counseling. The patient was checked out at 11:40 AM. This document may have been created using voice recognition software or other electronic means and may contain inadvertent proofer errors. Provider: Abelino OVERTON 04/03/2016 12:06 PM Document generated by: Abelino Lawrence 04/03/2016 12:06 PM CC Providers: Marcos Petersen [address] [place] [address]- Marcos Clarke[address] [place] [address] [address] [place] [address] w bud rae i karmen maciel s Shagufta bell g Hospital Course: Hospital Course: The patient was admitted through same day surgery and subsequently underwent a C4-5 anterior cervical discectomy and fusion with allograft bone, & anterior cervical plating from C4-5. The patient tolerated the procedure well. The patient was then was transferred to PACU and then to the OSC floor. The patient was admitted for postoperative pain control, PT/OT, supervised for atypical parkinsonian presentation under the care of Neurologist Dr. Schmid & other co- morbidities with inpatient nurse monitoring, continuous pulse oximetry, and discharge planning. The Patient's overnight course within normal limits. Currently the patient has complaints of mild surgical site pain, dysphagia, posterior for myofascial inflammatory pain/spasm adequately controlled with her current postoperative prescription analgesics & muscle relaxants. There is significant improvement of the patient's residual myelopathic symptoms including but not limited to the dysesthesias in her lower extremities. The patient denies headache, severe sore throat or dysphagia, chest pain, shortness of breath, abdominal pain, nausea, vomiting, constipation, diarrhea, or any new onset &/or location of pain, weakness or paresthesias aside from the surgical site. PHYSICAL EXAM This is a well developed, well nourished, female who is alert, cooperative, and appears to be in no acute distress with a pleasant affect & euthymic mood. Exam of the head is normocephalic. PERRL, EOMI, without facial droop, hearing grossly intact, nostrils patent, oral cavity and pharynx normal. Voice is within normal limits Exam or the heart reveals regular rate and rhythm without audible murmurs The lungs are clear to auscultation bilaterally. The abdomen is non- tender and non-distended. Exam of the anterior cervical surgical wound reveals that it is clean, dry, and intact; without signs of infection, inflammation, and/or hematoma. There is less than 30 mL output from surgical drain in the last 8 hour period. Gross exam of the extremities reveals strength & sensation are grossly intact within the patient's normal baseline limits. The patient was eventually able to get out of bed and ambulate within acceptable limits. Therapy services made recommendations for disposition. Flatus was appreciated and the patient was able to void without significant difficulty. The pain was gradually under control. The patient was afebrile on discharge. The patient's incision(s) was clean, dry and intact. The dressing was changed to the Surgeon's specifications. The output from the wound drain was less then 30cc's in an 8 hour period at discharge and therefore the drain was removed. The patient progressed well with rehabilitation and was subsequently discharged to home in stable condition. The patient verbally affirmed understanding when given clear instruction regarding the postoperative care and follow-up including but not limited to seeking immediate medical attention for chest pain, shortness of breath, a temperature greater than 101.5 F, severe uncontrolled pain or weakness, loss of bowel or bladder function, choking, lots or drainage, pus discharge or constipation. All questions were answered. Disposition: Form in stable condition Follow-up Plan: Follow-up with physician computer assistant in outpatient neurosurgical clinic in 1 week for wound check. ([multivit 50 & older]) 1 TAB PO DAILY (Reported) Ascorbic Acid (Vitamin C) 1,000 Mg Tab.chew 1,000 MG PO DAILY (Reported) Carbidopa/Levodopa 25-100 mg (Carbidopa/Levodopa 25-100 mg) 1 Each Tablet 1 TABLET PO TID (Reported) takes 1 tab @ 0800, 1.5 tabs @ 1500, 1 tab @ 2200 Cholecalciferol (Vitamin D3) (Vitamin D) 1,000 Unit Capsule 2,000 UNIT PO DAILY (Reported) Diazepam (Valium) 5 Mg Tablet 5-10 MG PO TID PRN PRN PRN (Reported) Hydrocodone-Acetaminophen 10-325 mg (Hydrocodone-Acetaminophen 10-325 mg) 1 Each Tablet 0.5-2 TABLET PO Q4-6H PRN PRN For Pain (Reported) Vit B Comp/C/FA/Iron/Vit E (Vitamin B Complex Tablet) 1 Each Tablet 1 EACH PO DAILY (Reported) Discharge Medications: Prescribed during the patient's preoperative appointment. Attending Statement: All documentation reviewed & orders authorized by Dr. Kristopher De La Rosa M.D. copies to: Marcos Petersen MD, Scott PA-C Apr 26, 2016 09:32
--- NOTE | 2016-04-26 11:09 | DRSVH ---
PROCEDURE: X-RAY CERVICAL SPINE, 1 VIEW INDICATIONS: S/P C4-5 ACDF TECHNIQUE: Single lateral view of the cervical spine acquired. COMPARISON: [facility], CR, XR CERVICAL SPINE 1VW, 04/25/2016, 11:05. [facility], CR, XR CERVICAL SPINE 1VW, 04/25/2016, 12:23. FINDINGS: Lateral view of the cervical spine demonstrates discectomy and anterior fusion at C4-C5. T he alignment is normal. IMPRESSION: C4-C5 discectomy and anterior fusion. Dictated by: Cristian Amato M.D. on 04/26/2016 at 11:07 Approved by: Cristian Amato M.D. on 04/26/2016 at 11:07
--- NOTE | 2016-04-26 11:21 | NUR ---
Social Work Screen/Discharge EMR reviewed. Pt is a 70Y old female admitted for Cervical Spondylosis with Myelopathy. Per EMR, pt lives at home with her spouse in [place]. Pt medically stable and discharging home via POV. No needs identified. SW unable to complete Initial assessment prior to Pt discharging. KYA Whitmore Addendum: 04/26/16 at 1132 by CALDERON FERNANDO Disregard, Entered on wrong Patient.
--- NOTE | 2016-04-26 13:18 | NUR ---
Discharge Pt DC home with daughter who is an RN. Pain well controlled with PO Vicodin and Valium. Drain output less than 30cc overnight and was pulled. Dressing changed per instructions. Incision was well approximated with steristrips CDI. PT cleared pt to go home. Xray confirmed no changes from surgery. VSS and pt is mid 90s on RA. Confusion on whether pt was on oxygen overnight and NOC RN was phoned to verify his verbal report given at shift change was accurate and pt was not on oxygen overnight. SpO2 checked twice this morning and was stable. All instructions given and question answered.
--- NOTE | 2016-04-26 13:20 | NUR ---
Social Work Screen/Discharge EMR reviewed. Pt is a 70Y old female admitted for Cervical Spondylosis with Myelopathy. Per EMR, pt lives at home with her spouse in [place]. Pt medically stable and discharging home via POV. No needs identified. SW unable to complete Initial assessment prior to Pt discharging. KYA Whitmore
== END 2016-04-26 13:15 | disposition home or self-care (01) | DRG 473 ==
LOC: SAS 08:12 → OSC 14:42
PROVIDERS: ADMIT Neurological Surgery; ATTEND Neurological Surgery
PROC: 0RT30ZZ Resection of Cervical Vertebral Disc, Open Approach (ICD-10-PCS; 2016-04-25)
PROC: 0RG2070 Fusion of 2 or more Cervical Vertebral Joints with Autologous Tissue Substitute, Anterior Approach, Anterior Column, Open Approach (ICD-10-PCS; principal; 2016-04-25 10:00)
DX: M47.12 Other spondylosis with myelopathy, cervical region (principal); Z87.891 Personal history of nicotine dependence